=== PATIENT | female | born 1980 | race Caucasian/White ===

== ENCOUNTER 2020-05-25 13:16 | Emergency (ER) | payer OTHER | END 2020-05-25 13:23 | disposition home or self-care (01) | LOC: JVIRT 13:16 | DX: Z03.818 Encounter for observation for suspected exposure to other biological agents ruled out (principal) | CPT/HCPCS: C9803; Q3014-GT; U0003 ==

== ENCOUNTER 2020-06-27 09:35 | Emergency (ER) | payer OTHER | END 2020-06-27 12:17 | disposition home or self-care (01) | LOC: JVIRT 09:35 | DX: Z03.818 Encounter for observation for suspected exposure to other biological agents ruled out (principal) | CPT/HCPCS: C9803; G2012-GT; U0003 ==